=== PATIENT | female | born 1955 | race Caucasian/White ===

== ENCOUNTER 2018-03-13 10:26 | Outpatient (CLI) | payer OTHER | END 2018-03-13 10:27 | disposition home or self-care (01) | LOC: BICMAMMO 10:26 | PROVIDERS: ATTEND Internal Medicine Geriatric Medicine | DX: Z12.31 Encounter for screening mammogram for malignant neoplasm of breast (principal) | CPT/HCPCS: 77063; 77067 ==

== ENCOUNTER 2020-04-27 06:31 | Outpatient (CLI) | payer BC ==
[2020-04-27 11:48] LABS: Bilirubin Neg (Negative); Blood, Urine Negative (Negative); Clarity Clear (Clear); Glucose, Urine (Dipstick) Normal (Negative); Ketone, Urine Negative (Negative); Leukocyte Negative (Negative); Nitrite Negative (Negative); Protein, Urine (Dipstick) 15 mg/dl (Neg-Trace); Specific Gravity, Urine 1.015 (1.002-1.036); Urobilinogen Normal mg/dL (Less than 2)
[2020-04-27 11:55] LABS: #Basophils 0.1 10x3/uL (0.0-0.2); #Eosinphils 0.1 10x3/uL (0.0-0.5); #Monocytes 0.6 10x3/uL (0.0-1.1); #Neutrophils 4.6 10x3/uL (1.5-8.4); %Basophils 0.9 % (0.0-2.0); %Eosinophils 1.1 % (0.0-6.0); %Lymphocytes 32.6 % (18.0-47.0); %Monocytes 7.9 % (0.0-10.0); %Neutrophils 57.3 % (40.0-75.0); Hemoglobin 13.3 g/dL (12.0-16.0); Mean Corpuscular HGB CONC 34.2 G/DL (32.0-36.0); Mean Corpuscular Hemoglobin 33.8 PG (27.0-33.0); Mean Platelet Volume 9.9 fl (7.4-10.4); Platelet Count 303 10x3/uL (130-400); RBC Distribution Width 11.7 % (11.5-14.5); Red Blood Cell (RBC) Count 3.93 10x6/uL (3.90-5.20); White Blood Cell (WBC) Count 8.1 10x3/uL (4.5-11.0)
[2020-04-27 12:13] LABS: Anion Gap 16 mmol/L (10-20); BUN (Urea Nitrogen) 19 mg/dL (9.8-20.1); Calc. Creatinine Clearance 0 mL/min (70-130); Calcium 9.6 mg/dL (7.8-10.44); Carbon Dioxide 28 mmol/L (23-31); Chloride 99 mmol/L (98-107); Glucose 75 mg/dL (80-115); Potassium 3.9 mmol/L (3.5-5.1); Sodium 139 mmol/L (136-145)
[2020-04-27 12:24] LABS: RBC/HPF 0-3 HPF (0-3); Squamous Epithelial 0-3 HPF (0-3); WBC/HPF 0-3 HPF (0-3)
[2020-04-27 12:25] LABS: Bacteria/HPF Rare-Few HPF (None Seen); Mucous/LPF 1+ LPF (<2+)
[2020-04-27 12:27] LABS: Prothrombin Time 10.5 sec (9.5-12.1)
[2020-04-27 23:32] LABS: SARS-CoV-2 PCR by NAA Not Detected (NotDetected)
--- NOTE | 2020-04-28 07:23 | EKG ---
Test Reason : PREOP Blood Pressure : / mmHG Vent. Rate : 102 BPM Atrial Rate : 102 BPM P-R Int : 154 ms QRS Dur : 078 ms QT Int : 352 ms P-R-T Axes : 059 029 069 degrees QTc Int : 458 ms Sinus tachycardia Right atrial enlargement Anterior infarct , age undetermined Abnormal ECG Confirmed by DR. Ziyad CHAPMAN ([id number]) on 04/28/2020 7:23:21 AM Referred By: IERO Confirmed By:DR. Ziyad CHAPMAN
== END 2020-04-27 06:32 | disposition home or self-care (01) ==
LOC: LABBT 06:31
PROVIDERS: ATTEND Orthopaedic Surgery
DX: Z01.818 Encounter for other preprocedural examination (principal); Z20.822 Contact with and (suspected) exposure to COVID-19; M17.0 Bilateral primary osteoarthritis of knee
CPT/HCPCS: 80048; 81001; 85025; 85610; 87081; 87635; 93005; 93010; U0003; U0005

== ENCOUNTER 2020-05-09 05:21 | Day surgery (SDC) | payer BC ==
[2020-05-05 14:59] VITALS: BMI 35.7
[2020-05-09] MEDS ORDERED: Midazolam HCl 2 mg/2 ml Vial ONE (05:59)
[2020-05-09] MEDS ORDERED: Fentanyl 100 MCG/2 ML VIAL ONE ×2 (05:59→09:16)
[2020-05-09] MEDS ORDERED: Tranexamic Acid 1,000 MG/10 ML VIAL ONE ×2 (06:00→10:42)
[2020-05-09] MEDS ORDERED: Sodium Chloride 0.9% 100 ML ONE (06:00)
[2020-05-09] MEDS ORDERED: Clindamycin/D5W 600 mg/50 ml Premix Bag ONE (06:00)
[2020-05-09] MEDS ORDERED: Vancomycin 1.5 GRAM/300 ML BAG ONE (06:00)
[2020-05-09] MEDS ORDERED: Bupivacaine PF 0.5% 30 ML VIAL ONE (06:27)
[2020-05-09] MEDS ORDERED: Lidocaine 1% (PF) 30 ML VIAL ONE (06:33)
[2020-05-09] MEDS ORDERED: methylPREDNISolone Acetate 40 mg/ml Vial ONE (06:33)
[2020-05-09] MEDS ORDERED: Zolpidem Tartrate 5 MG TAB PO PRN ×2 (07:00→07:26)
[2020-05-09] MEDS ORDERED: Promethazine HCl 25 MG/ML VIAL IM PRN ×2 (07:00→07:26)
[2020-05-09] MEDS ORDERED: Ondansetron PF 4 MG/2 ML Vial IVP PRN ×2 (07:00→07:26)
[2020-05-09] MEDS ORDERED: Fentanyl 100 MCG/2 ML VIAL IV PRN (07:00)
[2020-05-09] MEDS ORDERED: HYDROcodone/Acetaminophen 10/325 mg Tablet PO PRN (07:00)
[2020-05-09] MEDS ORDERED: traMADol HCl 50 MG TAB PO PRN (07:00)
[2020-05-09] MEDS ORDERED: Ropivacaine HCl/PF 250 ML in Premix Bag 1 BAG NERVE BLCK SCH (07:00)
[2020-05-09] MEDS ORDERED: Acetaminophen 325 MG TAB PO PRN (07:26)
[2020-05-09] MEDS ORDERED: diphenhydrAMINE 25 MG CAP PO PRN (07:26)
[2020-05-09] MEDS ORDERED: Acetaminophen 500 MG TAB PO PRN (07:28)
[2020-05-09] MEDS ORDERED: clonazePAM 1 MG TAB PO PRN (07:28)
[2020-05-09] MEDS ORDERED: tiZANidine HCl 4 MG TAB PO PRN (07:28)
[2020-05-09] MEDS ORDERED: Tranexamic Acid 1,000 MG in Sodium Chloride 0.9% 100 ML IVPB SCH (07:30)
[2020-05-09] MEDS ORDERED: Cetirizine HCl 10 MG TAB PO SCH (09:00)
[2020-05-09] MEDS ORDERED: Gabapentin 300 MG CAP PO SCH (09:00)
[2020-05-09] MEDS ORDERED: Nortriptyline HCl 25 MG CAP PO SCH (09:00)
[2020-05-09] MEDS ORDERED: DULOXETINE HCL 40 MG PO SCH (09:00)
[2020-05-09] MEDS ORDERED: Simvastatin 40 MG TAB PO SCH (09:00)
[2020-05-09] MEDS ORDERED: carBAMazepine 200 MG TAB PO SCH (09:00)
[2020-05-09] MEDS ORDERED: Ondansetron HCl/PF 4 MG/2 ML Vial IVP PRN (09:36)
--- NOTE | 2020-05-09 10:22 | OP ---
DATE OF PROCEDURE: 05/09/2020 CYTOTECHNOLOGIST/HISTOTECHNOLOGIST: Trae Crespo PA-C. The orthodontic technician assistant surgeon was present throughout the procedure to include the approach, making our bone cuts and placement of our new implant and closure of the total knee incision. PREOPERATIVE DIAGNOSIS: Bilateral knee osteoarthrosis with left being worse than right. POSTOPERATIVE DIAGNOSIS: Bilateral knee osteoarthrosis with left being worse than right. PROCEDURES: 1. Left total knee replacement using [place] pinless navigation. 2. Right knee corticosteroid injection. ESTIMATED BLOOD LOSS: Approximately 100. COMPLICATIONS: None. TOURNIQUET TIME: ANESTHESIA: The patient did have a general anesthetic as well as a preoperative block. DISPOSITION: She went to recovery room in stable condition. IMPLANTS: A [employer] Triathlon total knee system. The femur was a size 3, cruciate retaining femur. We used a size 3 primary tibial base plate. We used a 3 x 13 mm CS X3 tibial bearing and asymmetric 29 x 9 X3 patella. INDICATIONS: Ms. Woo is a 64-year-old active female who has been dealing with severe knee arthritis for years and at this time, is causing her daily pain and inability to do her normal activities. At this time, she wished to have her left knee replaced and the right knee injected at the same time. PROCEDURE IN DETAIL: After all appropriate consent forms were explained and signed, she was taken to the operating room and at this time was given general anesthetic. Once the level of anesthesia was appropriate, the right knee was cleaned off with alcohol and 80 mg of Depo-Medrol and 1% lidocaine were injected without any complication. We then turned our attention to the left lower extremity. A well-padded tourniquet was placed on the left leg, and the leg was then prepped and draped in standard surgical fashion. The limb was exsanguinated and tourniquet taken up to 300 mmHg. Midline incision was made with a 10 blade down through the skin and subcutaneous tissue. Bovie electrocautery was used to coagulate any brisk venous bleeding. A new blade was used to make a medial parapatellar arthrotomy. Small subperiosteal release was performed medially and excess fat pad was removed. The knee was flexed up to gain access to the femur. The femur was navigated and distal femoral resection was made. Epicondylar access was used to align our sizing jig and this was pinned in place. We sized our femur to be a 3, cruciate retaining femur. 4:1 cutting block was applied and pinned. Anterior and posterior chamfer cuts were then made. We navigated out our proximal tibia and made our proximal tibial resection. Spreaders were used to remove any posterior osteophytes off the back of the femur as well as remaining meniscal tissue. A long alignment laura was then used to achieve correct rotation of our tibial baseplate and a size 3 was chosen. This was pinned in place. We trialed the polyethylene and a 3 x 13 mm CS X3 tibial bearing polyethylene gave us full extension and good stability throughout range of motion. Two towel clips and a saw were used to cut our patella. Three lug nuts were drilled and asymmetric 29 x 9 X3 patella was trialed which sat nicely in the trochlear groove. We then drilled our femur and punched our tibia. All components were removed. The knee was thoroughly irrigated and dried. Cement was mixed into the cement gun on the back table. Components were then placed. The knee was held out in full extension until the cement had dried. All excess bone cement was removed. Multiple #2 Vicryl stitches as well as a Quill were used to close our extensor mechanism. 0 Quill followed by a running Monoderm was then used to close the skin. Surgicel glue was then used on the skin. Once this had dried, soft tissue dressing was applied to the limb, tourniquet was let down, and the toes pinked up nicely. The patient was then awakened and taken to the recovery room in stable condition. All counts were correct at the end of the case. The patient did receive preoperative IV antibiotics. The patient was injected with Marcaine for postoperative pain relief. Job ID: [id number]
[2020-05-09] MEDS ORDERED: PHENYLEPHRINE-NS 100 MCG/ML 10 ML SYRINGE ONE (10:34)
[2020-05-09] MEDS ORDERED: Ketorolac Tromethamine 30 MG/ML VIAL ONE (10:34)
[2020-05-09] MEDS ORDERED: Lidocaine 1% PF 5 ML VIAL ONE (10:34)
[2020-05-09] MEDS ORDERED: Ondansetron PF 4 MG/2 ML Vial ONE (10:34)
[2020-05-09] MEDS ORDERED: ePHEDrine 50 MG/ML VIAL ONE (10:34)
[2020-05-09] MEDS ORDERED: PROPOFOL 200 MG/20 ML VIAL ONE (10:34)
[2020-05-09] MEDS ORDERED: Bupivacaine 0.5% 10 ML VIAL ONE (11:10)
[2020-05-09] MEDS ORDERED: Ropivacaine 2% HCl/PF (20 MG/10 ML VIAL) ONE (11:23)
[2020-05-09] MEDS ORDERED: Bupivacaine HCl 0.5%/Epinephrine 1:200,000/PF 30 ml Vial ONE (11:23)
[2020-05-09] MEDS: Aspirin 81 mg Enteric Coated Tablet PO SCH ×2 (12:17→20:16)
[2020-05-09] MEDS: Sodium Chloride 0.9% 1,000 ML IV SCH ×2 (12:20→14:51)
[2020-05-09] MEDS: Ferrous Gluconate 324 MG TAB PO SCH ×2 (13:16→20:16)
[2020-05-09] MEDS: Multivitamin W/ Minerals 1 TAB PO SCH (13:17)
[2020-05-09] MEDS: Loratadine 10 MG TAB PO SCH (13:17)
[2020-05-09] MEDS: Senokot S 8.6-50 MG TAB PO SCH ×2 (13:17→20:15)
[2020-05-09] MEDS: Ketorolac Tromethamine 30 MG/ML VIAL IVP SCH ×3 (13:19→23:13)
[2020-05-09] MEDS: Clindamycin/D5W 900 MG in Premix Bag 1 BAG IVPB SCH ×2 (13:23→18:39)
[2020-05-09] MEDS ORDERED: Ketorolac Tromethamine 30 MG/ML VIAL IVP SCH (14:00)
[2020-05-09] MEDS ORDERED: Vancomycin 1.5 GRAM/300 ML BAG 1.5 GM in Premix Bag 1 BAG IVPB SCH (18:00)
[2020-05-09] MEDS: Gabapentin 300 MG CAP PO SCH (20:16)
[2020-05-09] MEDS: carBAMazepine 200 MG TAB PO SCH (20:16)
[2020-05-09] MEDS: Simvastatin 40 MG TAB PO SCH (21:18)
[2020-05-09] MEDS: Nortriptyline HCl 25 MG CAP PO SCH (21:33)
[2020-05-09] MEDS: HYDROcodone/Acetaminophen 10/325 mg Tablet PO PRN (23:18)
[2020-05-10] MEDS: Sodium Chloride 0.9% 1,000 ML IV SCH ×2 (04:32→14:54)
[2020-05-10] MEDS: Ketorolac Tromethamine 30 MG/ML VIAL IVP SCH ×4 (05:28→23:26)
[2020-05-10 05:49] LABS: Mean Corpuscular HGB CONC 33.7 g/dL (32.0-36.0); Mean Corpuscular Hemoglobin 33.5 pg (27.0-31.0); Mean Corpuscular Volume 99.4 fL (78.0-98.0); Mean Platelet Volume 7.2 fL (7.4-10.4); Platelet Count 227 thou/uL (130-400); RBC Distribution Width 10.9 % (11.5-14.5); Red Blood Cell (RBC) Count 3.59 mill/uL (4.20-5.40); White Blood Cell (WBC) Count 10.1 thou/uL (4.8-10.8)
[2020-05-10] MEDS: HYDROcodone/Acetaminophen 10/325 mg Tablet PO PRN ×4 (08:08→23:27)
[2020-05-10] MEDS: Senokot S 8.6-50 MG TAB PO SCH ×2 (08:12→20:24)
[2020-05-10] MEDS: Multivitamin W/ Minerals 1 TAB PO SCH (08:13)
[2020-05-10] MEDS: Aspirin 81 mg Enteric Coated Tablet PO SCH ×2 (08:13→20:24)
[2020-05-10] MEDS: Loratadine 10 MG TAB PO SCH (08:13)
[2020-05-10] MEDS: Ferrous Gluconate 324 MG TAB PO SCH ×2 (08:13→20:26)
[2020-05-10] MEDS: traMADol HCl 50 MG TAB PO PRN (10:46)
--- NOTE | 2020-05-10 12:17 | PRG ---
DATE OF SERVICE: 05/10/2020 SUBJECTIVE: Alexa is a 64-year-old female postop day 1 from left total knee arthroplasty. She is doing relatively well. She had some pain last night, but oral medications have taken care of this. She has not been up to walking. OBJECTIVE: VITAL SIGNS: Temperature 98.8, pulse 101, respiratory rate 18, and blood pressure 139/87. GENERAL: She is alert and oriented to person, place, time, and situation. Responsive and appropriate with examiner, conversive. SKIN: Incision is clean. No strikethrough. No erythema. NEUROLOGIC: She is neurovascularly intact in left lower extremity. LABORATORY DATA: Hemoglobin and hematocrit 12.0 and 35.7. IMPRESSION: 64-year-old female postop day 1 left total knee arthroplasty, doing well. PLAN: Continue to observe for hemorrhage. Continue to observe H and H and for pain control. Consider discharge home tomorrow if independent. Job ID: [id number]
[2020-05-10] MEDS: Simvastatin 40 MG TAB PO SCH (20:24)
[2020-05-10] MEDS: Nortriptyline HCl 25 MG CAP PO SCH (20:24)
[2020-05-10] MEDS: Gabapentin 300 MG CAP PO SCH (20:24)
[2020-05-10] MEDS: carBAMazepine 200 MG TAB PO SCH (20:24)
[2020-05-11] MEDS: Sodium Chloride 0.9% 1,000 ML IV SCH ×3 (00:18→17:09)
[2020-05-11 05:28] LABS: Hemoglobin 11.8 g/dL (12.0-16.0); Mean Corpuscular HGB CONC 34.7 g/dL (32.0-36.0); Mean Corpuscular Hemoglobin 34.7 pg (27.0-31.0); Mean Corpuscular Volume 99.8 fL (78.0-98.0); Mean Platelet Volume 7.5 fL (7.4-10.4); Platelet Count 210 thou/uL (130-400); Red Blood Cell (RBC) Count 3.42 mill/uL (4.20-5.40); White Blood Cell (WBC) Count 9.5 thou/uL (4.8-10.8)
[2020-05-11] MEDS: Ketorolac Tromethamine 30 MG/ML VIAL IVP SCH ×2 (06:13→11:18)
[2020-05-11] MEDS: HYDROcodone/Acetaminophen 10/325 mg Tablet PO PRN ×4 (06:24→23:17)
[2020-05-11] MEDS: Multivitamin W/ Minerals 1 TAB PO SCH (08:09)
[2020-05-11] MEDS: Loratadine 10 MG TAB PO SCH (08:09)
[2020-05-11] MEDS: Ferrous Gluconate 324 MG TAB PO SCH ×2 (08:09→19:54)
[2020-05-11] MEDS: Senokot S 8.6-50 MG TAB PO SCH ×2 (08:09→19:55)
[2020-05-11] MEDS: Aspirin 81 mg Enteric Coated Tablet PO SCH ×2 (08:09→19:54)
[2020-05-11] MEDS ORDERED: Ketorolac Tromethamine 30 MG/ML VIAL IVP PRN (12:29)
[2020-05-11] MEDS: traMADol HCl 50 MG TAB PO PRN (18:26)
[2020-05-11] MEDS: Nortriptyline HCl 25 MG CAP PO SCH (19:54)
[2020-05-11] MEDS: Simvastatin 40 MG TAB PO SCH (19:54)
[2020-05-11] MEDS: Gabapentin 300 MG CAP PO SCH (19:55)
[2020-05-11] MEDS: carBAMazepine 200 MG TAB PO SCH (19:56)
[2020-05-12 05:47] LABS: Hemoglobin 11.1 g/dL (12.0-16.0); Mean Corpuscular HGB CONC 34.3 g/dL (32.0-36.0); Mean Corpuscular Hemoglobin 34.3 pg (27.0-31.0); Mean Platelet Volume 7.1 fL (7.4-10.4); Platelet Count 227 thou/uL (130-400); RBC Distribution Width 10.8 % (11.5-14.5); Red Blood Cell (RBC) Count 3.24 mill/uL (4.20-5.40); White Blood Cell (WBC) Count 9.9 thou/uL (4.8-10.8)
[2020-05-12] MEDS: Senokot S 8.6-50 MG TAB PO SCH (10:15)
[2020-05-12] MEDS: Multivitamin W/ Minerals 1 TAB PO SCH (10:15)
[2020-05-12] MEDS: Ferrous Gluconate 324 MG TAB PO SCH (10:15)
[2020-05-12] MEDS: Loratadine 10 MG TAB PO SCH (10:15)
[2020-05-12] MEDS: Aspirin 81 mg Enteric Coated Tablet PO SCH (10:15)
[2020-05-12] MEDS: HYDROcodone/Acetaminophen 10/325 mg Tablet PO PRN (10:30)
[2020-05-12 11:27] VITALS: BP 138/96; TEMP 98.5
== END 2020-05-12 12:15 | disposition home or self-care (01) ==
LOC: SDC 05:21 → SURG A 07:26 → SDC 05-12 12:15
PROVIDERS: ATTEND Orthopaedic Surgery
PROC: 3E0U33Z Introduction of Anti-inflammatory into Joints, Percutaneous Approach (ICD-10-PCS; principal; 2020-05-09)
PROC: 0SRD0J9 Replacement of Left Knee Joint with Synthetic Substitute, Cemented, Open Approach (ICD-10-PCS; principal; 2020-05-09)
PROC: 8E0YXBZ Computer Assisted Procedure of Lower Extremity (ICD-10-PCS; principal; 2020-05-09)
DX: M17.0 Bilateral primary osteoarthritis of knee (principal); I10 Essential (primary) hypertension; J45.909 Unspecified asthma, uncomplicated; F32.9 Major depressive disorder, single episode, unspecified; M81.0 Age-related osteoporosis without current pathological fracture; G50.0 Trigeminal neuralgia; Z87.891 Personal history of nicotine dependence; Z79.899 Other long term (current) drug therapy; Z88.1 Allergy status to other antibiotic agents; Z88.8 Allergy status to other drugs, medicaments and biological substances
CPT/HCPCS: 36415; 85027; C1713; C1776; J1885; J2001; J2250; J2405; J2704; J2795; J2920; J3010; J3370; J3490; S0020

== ENCOUNTER 2020-07-28 15:01 | Outpatient (CLI) | payer BC | END 2020-07-28 15:02 | disposition home or self-care (01) | LOC: BICULT 15:01 | PROVIDERS: ATTEND Orthopaedic Surgery | DX: R22.42 Localized swelling, mass and lump, left lower limb (principal) ==

== ENCOUNTER 2020-09-10 12:11 | Inpatient (IN) | payer BC ==
[~2020-09-10 12:11] MED LIST: Iopamidol-370 76% 500 ML 1 ML ONE
[2020-09-10 12:27] LABS: #Lymphocytes 1.7 thou/uL (1.20-3.40); #Monocytes 0.9 thou/uL (0.11-0.59); #Neutrophils 9.4 thou/uL (1.40-6.50); %Basophils 0.4 % (0.0-1.0); %Eosinophils 0.3 % (0.0-10.0); %Lymphocytes 14.1 % (21.0-51.0); %Monocytes 7.2 % (0.0-10.0); %Neutrophils 77.9 % (42.0-75.0); Mean Corpuscular HGB CONC 34.9 g/dL (32.0-36.0); Mean Corpuscular Hemoglobin 34.1 pg (27.0-31.0); Mean Corpuscular Volume 97.7 fL (78.0-98.0); Mean Platelet Volume 7.1 fL (7.4-10.4); Platelet Count 308 thou/uL (130-400); RBC Distribution Width 11.7 % (11.5-14.5); White Blood Cell (WBC) Count 12.1 thou/uL (4.8-10.8)
[2020-09-10 12:37] LABS: INR-International Normal Ratio 0.9; Prothrombin Time 12.6 sec (12.0-14.7)
[2020-09-10 12:51] LABS: ALT (SGPT) 46 U/L (8-55); AST (SGOT) 40 U/L (5-34); Albumin 4.3 g/dL (3.4-4.8); Alkaline Phosphatase 93 U/L (40-110); Anion Gap 13 mmol/L (10-20); BUN (Urea Nitrogen) 12 mg/dL (9.8-20.1); CK (CPK) 480 U/L (29-168); Calc. Creatinine Clearance 0 mL/min (70-130); Calcium 10.1 mg/dL (7.8-10.44); Carbon Dioxide 27 mmol/L (23-31); Chloride 100 mmol/L (98-107); Globulin 3.4 g/dL (2.4-3.5); Glucose 116 mg/dL (80-115); Protein, Total 7.7 g/dL (5.8-8.1); Sodium 136 mmol/L (136-145)
[2020-09-10] MEDS ORDERED: Aspirin 300 MG Suppository ONE (14:03)
[2020-09-10] MEDS ORDERED: Enoxaparin Sodium 40 MG/0.4 ML SYRINGE SC SCH (14:30)
[2020-09-10 15:27] LABS: INR-International Normal Ratio 0.9; PTT 26.6 sec (22.9-36.1); Prothrombin Time 12.7 sec (12.0-14.7)
[2020-09-10 15:55] LABS: SARS-CoV-2 NAA Rapid Test Not Detected (NotDetected)
[2020-09-10 16:38] VITALS: BMI 37.3
[2020-09-10] MEDS: Atorvastatin Calcium 40 MG TAB PO SCH (19:59)
[2020-09-11 04:08] LABS: Cardiac Risk 5.6 (Less than 4.5)
[2020-09-11] MEDS: Aspirin 81 mg Enteric Coated Tablet PO SCH (08:15)
[2020-09-11] MEDS: Enoxaparin Sodium 40 MG/0.4 ML SYRINGE SC SCH (08:24)
[2020-09-11] MEDS: Atorvastatin Calcium 40 MG TAB PO SCH (20:40)
[2020-09-12] MEDS: Clopidogrel Bisulfate 75 MG TAB PO SCH (08:24)
[2020-09-12] MEDS: Aspirin 81 mg Enteric Coated Tablet PO SCH (08:24)
[2020-09-12] MEDS: Enoxaparin Sodium 40 MG/0.4 ML SYRINGE SC SCH (08:24)
[2020-09-12] MEDS: Atorvastatin Calcium 40 MG TAB PO SCH (21:15)
[2020-09-13 03:55] LABS: #Basophils 0.1 thou/uL (0.0-0.2); #Eosinphils 0.1 thou/uL (0.0-0.7); #Lymphocytes 3.3 thou/uL (1.20-3.40); #Monocytes 0.7 thou/uL (0.11-0.59); %Basophils 1.6 % (0.0-1.0); %Eosinophils 1.5 % (0.0-10.0); %Lymphocytes 39.8 % (21.0-51.0); %Monocytes 8.1 % (0.0-10.0); %Neutrophils 49.1 % (42.0-75.0); Hemoglobin 13.4 g/dL (12.0-16.0); Mean Corpuscular HGB CONC 34.6 g/dL (32.0-36.0); Mean Corpuscular Hemoglobin 33.7 pg (27.0-31.0); Mean Corpuscular Volume 97.3 fL (78.0-98.0); Mean Platelet Volume 7.1 fL (7.4-10.4); Platelet Count 254 thou/uL (130-400); Red Blood Cell (RBC) Count 3.97 mill/uL (4.20-5.40); White Blood Cell (WBC) Count 8.2 thou/uL (4.8-10.8)
[2020-09-13 03:59] LABS: Anion Gap 15 mmol/L (10-20); BUN (Urea Nitrogen) 13 mg/dL (9.8-20.1); Calc. Creatinine Clearance 127 mL/min (70-130); Calcium 9.5 mg/dL (7.8-10.44); Carbon Dioxide 26 mmol/L (23-31); Chloride 101 mmol/L (98-107); Glucose 105 mg/dL (80-115); Potassium 3.8 mmol/L (3.5-5.1); Sodium 138 mmol/L (136-145)
[2020-09-13] MEDS: Aspirin 81 mg Enteric Coated Tablet PO SCH (08:54)
[2020-09-13] MEDS: Clopidogrel Bisulfate 75 MG TAB PO SCH (08:55)
[2020-09-13] MEDS: Enoxaparin Sodium 40 MG/0.4 ML SYRINGE SC SCH (08:55)
[2020-09-13] MEDS: Atorvastatin Calcium 40 MG TAB PO SCH (22:07)
[2020-09-14] MEDS: Enoxaparin Sodium 40 MG/0.4 ML SYRINGE SC SCH (08:08)
[2020-09-14] MEDS: Aspirin 81 mg Enteric Coated Tablet PO SCH (08:08)
[2020-09-14] MEDS: Clopidogrel Bisulfate 75 MG TAB PO SCH (08:08)
[2020-09-14 12:16] VITALS: BP 131/71; TEMP 98.6
== END 2020-09-14 15:50 | DRG 65 ==
LOC: ERS 12:11 → IMCU/EMU 14:04 → 2SE 09-13 17:01
PROVIDERS: ADMIT Internal Medicine; ATTEND Internal Medicine
DX: I63.312 Cerebral infarction due to thrombosis of left middle cerebral artery (principal); G81.91 Hemiplegia, unspecified affecting right dominant side; Z20.822 Contact with and (suspected) exposure to COVID-19; R29.731 NIHSS score 31; R29.810 Facial weakness; R47.01 Aphasia; G93.89 Other specified disorders of brain; I65.03 Occlusion and stenosis of bilateral vertebral arteries; E78.5 Hyperlipidemia, unspecified; E78.00 Pure hypercholesterolemia, unspecified; I65.22 Occlusion and stenosis of left carotid artery; Z96.652 Presence of left artificial knee joint; F17.210 Nicotine dependence, cigarettes, uncomplicated; Z88.5 Allergy status to narcotic agent; Z88.1 Allergy status to other antibiotic agents; Z88.8 Allergy status to other drugs, medicaments and biological substances; Z79.82 Long term (current) use of aspirin; Z79.899 Other long term (current) drug therapy
CPT/HCPCS: 0240U; 36415; 36416; 70450; 70496; 70498; 70551; 71045; 80048; 80053; 80061; 82550; 84484; 85025; 85610; 85730; 93005; 93306; 94760; 95712; 95819; 95957; J1650; Q9967

== ENCOUNTER 2020-12-01 12:00 | Inpatient (IN) | payer OTHER ==
[2020-12-02 09:26] VITALS: BMI 34.3
[2020-12-06] MEDS ORDERED: Protamine Sulfate 50 MG/5 ML VIAL ONE (09:06)
[2020-12-06] MEDS ORDERED: Heparin 5,000 UNITS/ML VIAL ONE ×2 (09:06→09:41)
[2020-12-06] MEDS ORDERED: Dexamethasone 4 mg/ml Vial ONE (09:06)
[2020-12-06] MEDS ORDERED: EPINEPHrine 1 MG/ML AMP ONE (09:06)
[2020-12-06] MEDS ORDERED: Bupivacaine PF 0.5% 30 ML VIAL ONE (09:06)
[2020-12-06] MEDS ORDERED: Fentanyl 100 MCG/2 ML VIAL ONE ×2 (09:18→12:41)
[2020-12-06] MEDS ORDERED: PHENYLEPHRINE-NS 100 MCG/ML 10 ML SYRINGE ONE ×3 (09:19→13:36)
[2020-12-06] MEDS ORDERED: Phenylephrine 10 MG/ML VIAL ONE (09:19)
[2020-12-06] MEDS ORDERED: ePHEDrine 50 MG/ML VIAL ONE (10:15)
[2020-12-06] MEDS ORDERED: Lidocaine 1% PF 5 ML VIAL ONE (10:15)
[2020-12-06] MEDS ORDERED: PROPOFOL 200 MG/20 ML VIAL ONE (10:15)
[2020-12-06] MEDS ORDERED: Calcium Chloride 1 GM/10 ML Abboject SYRINGE ONE (10:15)
[2020-12-06] MEDS ORDERED: Ondansetron PF 4 MG/2 ML Vial ONE (10:15)
[2020-12-06] MEDS ORDERED: Glycopyrrolate 0.2 MG/ML 5 ML SYRINGE ONE (10:15)
[2020-12-06] MEDS ORDERED: SUGAMMADEX SODIUM 200 MG/2 ML VIAL ONE (11:40)
[2020-12-06] MEDS ORDERED: traMADol HCl 50 MG TAB PO PRN (12:06)
[2020-12-06] MEDS ORDERED: Nitroglycerin 50 MG/250 ML BOT 250 ML IVPB PRN (12:06)
[2020-12-06] MEDS ORDERED: Fentanyl 100 MCG/2 ML VIAL SLOW IVP PRN (12:06)
[2020-12-06] MEDS ORDERED: Acetaminophen 325 MG TAB PO PRN (12:06)
[2020-12-06] MEDS ORDERED: Ondansetron PF 4 MG/2 ML Vial IVP PRN (12:06)
[2020-12-06] MEDS ORDERED: hydrALAZINE 20 MG/ML VIAL SLOW IVP PRN (12:06)
[2020-12-06] MEDS ORDERED: Phenylephrine 40 MG in Sodium Chloride 0.9% 250 ML 250 ML IVPB PRN (12:06)
[2020-12-06] MEDS: Sodium Chloride 0.9% 1,000 ML IV SCH ×2 (12:30→22:04)
[2020-12-06] MEDS ORDERED: ePHEDrine Sulfate 50 MG/10 ML VIAL ONE (13:36)
[2020-12-06] MEDS ORDERED: DOPamine 400 MG/D5W 250 ML 250 ML ONE (15:57)
[2020-12-06] MEDS ORDERED: DOPamine 400 MG/D5W 250 ML 250 ML IVPB SCH (16:00)
[2020-12-06] MEDS: CEFAZOLIN 2 GM in Premix Bag 1 BAG IVPB SCH (17:00)
[2020-12-06 17:21] VITALS: BP 102/56
[2020-12-06] MEDS ORDERED: Donepezil HCl 5 MG TAB PO SCH (21:00)
[2020-12-06] MEDS ORDERED: carBAMazepine 200 MG TAB PO SCH (21:00)
[2020-12-06] MEDS ORDERED: Atorvastatin Calcium 40 MG TAB PO SCH (21:00)
[2020-12-06] MEDS ORDERED: Sterile Water 0 ML ONE (23:38)
[2020-12-06] MEDS ORDERED: Sodium Chloride 0.9% 10 ML ONE (23:38)
[2020-12-07] MEDS: CEFAZOLIN 2 GM in Premix Bag 1 BAG IVPB SCH ×2 (01:00→08:53)
[2020-12-07] MEDS: Sodium Chloride 0.9% 1,000 ML IV SCH (07:38)
[2020-12-07] MEDS ORDERED: Clopidogrel Bisulfate 75 MG TAB ONE (08:41)
[2020-12-07] MEDS ORDERED: Sodium Chloride 0.9% 0 ML ONE (08:48)
[2020-12-07] MEDS ORDERED: CEFAZOLIN 1 GM VIAL ONE (08:48)
[2020-12-07] MEDS ORDERED: Aspirin 81 mg Enteric Coated Tablet PO SCH (09:00)
[2020-12-07] MEDS ORDERED: Clopidogrel Bisulfate 75 MG TAB PO SCH (09:00)
[2020-12-07] MEDS ORDERED: Loratadine 10 MG TAB PO SCH (09:00)
[2020-12-07 09:36] VITALS: TEMP 97.8
== END 2020-12-07 10:45 | disposition home or self-care (01) | DRG 39 ==
LOC: SURG A 12-06 08:10
PROVIDERS: ADMIT Thoracic Surgery (Cardiothoracic Vascular Surgery); ATTEND Thoracic Surgery (Cardiothoracic Vascular Surgery)
PROC: 03CK0ZZ Extirpation of Matter from Right Internal Carotid Artery, Open Approach (ICD-10-PCS; principal; 2020-12-06)
PROC: 03CH0ZZ Extirpation of Matter from Right Common Carotid Artery, Open Approach (ICD-10-PCS; 2020-12-06)
PROC: 03CM0ZZ Extirpation of Matter from Right External Carotid Artery, Open Approach (ICD-10-PCS; 2020-12-06)
PROC: 03UH0KZ Supplement Right Common Carotid Artery with Nonautologous Tissue Substitute, Open Approach (ICD-10-PCS; 2020-12-06)
PROC: 03UK0KZ Supplement Right Internal Carotid Artery with Nonautologous Tissue Substitute, Open Approach (ICD-10-PCS; 2020-12-06)
PROC: 03UM0KZ Supplement Right External Carotid Artery with Nonautologous Tissue Substitute, Open Approach (ICD-10-PCS; 2020-12-06)
DX: I65.21 Occlusion and stenosis of right carotid artery (principal); Z20.822 Contact with and (suspected) exposure to COVID-19; I10 Essential (primary) hypertension; Z79.02 Long term (current) use of antithrombotics/antiplatelets; Z79.899 Other long term (current) drug therapy; Z86.73 Personal history of transient ischemic attack (TIA), and cerebral infarction without residual deficits; Z90.89 Acquired absence of other organs; Z82.49 Family history of ischemic heart disease and other diseases of the circulatory system; Z83.3 Family history of diabetes mellitus; Z88.1 Allergy status to other antibiotic agents; Z88.8 Allergy status to other drugs, medicaments and biological substances
CPT/HCPCS: 94640; J0171; J0690; J1100; J1265; J1642; J1644; J2370; J2405; J2704; J2720; J3010; J3490; J7050; J7620; S0020

== ENCOUNTER 2020-12-11 12:36 | Inpatient (IN) | payer BC, SELFPAY ==
[2020-12-11] MEDS ORDERED: Ondansetron PF 4 MG/2 ML Vial IVP PRN (15:40)
[2020-12-11] MEDS ORDERED: Ondansetron ODT 4 MG TAB PO PRN (15:40)
[2020-12-11] MEDS ORDERED: hydrALAZINE 20 MG/ML VIAL SLOW IVP PRN (15:40)
[2020-12-11] MEDS ORDERED: Acetaminophen 650 MG Suppository PR PRN (15:40)
[2020-12-11] MEDS ORDERED: Acetaminophen 325 MG TAB PO PRN (15:40)
[2020-12-11 16:05] LABS: #Eosinphils 0.1 thou/uL (0.0-0.7); #Lymphocytes 2.3 thou/uL (1.20-3.40); #Monocytes 0.5 thou/uL (0.11-0.59); #Neutrophils 3.4 thou/uL (1.40-6.50); %Basophils 0.7 % (0.0-1.0); %Eosinophils 1.6 % (0.0-10.0); %Lymphocytes 36.5 % (21.0-51.0); %Neutrophils 53.2 % (42.0-75.0); Hemoglobin 14.2 g/dL (12.0-16.0); Mean Corpuscular Volume 97.1 fL (78.0-98.0); Mean Platelet Volume 7.9 fL (7.4-10.4); Platelet Count 219 thou/uL (130-400); RBC Distribution Width 11.3 % (11.5-14.5); Red Blood Cell (RBC) Count 4.18 mill/uL (4.20-5.40); White Blood Cell (WBC) Count 6.3 thou/uL (4.8-10.8)
[2020-12-11 16:36] LABS: Anion Gap 22 mmol/L (10-20); BUN (Urea Nitrogen) 14 mg/dL (9.8-20.1); Calc. Creatinine Clearance 0 mL/min (70-130); Calcium 9.7 mg/dL (7.8-10.44); Carbon Dioxide 21 mmol/L (23-31); Chloride 100 mmol/L (98-107); Glucose 94 mg/dL (80-115); Potassium 3.8 mmol/L (3.5-5.1); Sodium 139 mmol/L (136-145)
[2020-12-11 16:41] LABS: Troponin I 0.011 ng/mL (< 0.028)
[2020-12-11] MEDS ORDERED: tiZANidine HCl 4 MG TAB PO PRN (16:56)
[2020-12-11 17:09] VITALS: BMI 32.8
[2020-12-11 17:22] LABS: Lactic Acid 1.1 mmol/L (0.5-2.2)
[2020-12-11] MEDS ORDERED: Lorazepam 2 MG/ML VIAL ONE ×2 (20:21→20:31)
[2020-12-11 20:34] LABS: #Basophils 0.1 thou/uL (0.0-0.2); #Eosinphils 0.2 thou/uL (0.0-0.7); #Monocytes 0.8 thou/uL (0.11-0.59); #Neutrophils 3.9 thou/uL (1.40-6.50); %Eosinophils 1.9 % (0.0-10.0); %Lymphocytes 38.3 % (21.0-51.0); %Monocytes 10.1 % (0.0-10.0); %Neutrophils 48.7 % (42.0-75.0); Hemoglobin 13.3 g/dL (12.0-16.0); Mean Corpuscular HGB CONC 35.7 g/dL (32.0-36.0); Mean Corpuscular Hemoglobin 34.7 pg (27.0-31.0); Mean Corpuscular Volume 97.2 fL (78.0-98.0); Mean Platelet Volume 7.9 fL (7.4-10.4); Platelet Count 256 thou/uL (130-400); RBC Distribution Width 11.2 % (11.5-14.5); Red Blood Cell (RBC) Count 3.83 mill/uL (4.20-5.40); White Blood Cell (WBC) Count 7.9 thou/uL (4.8-10.8)
[2020-12-11 20:47] LABS: PTT 27.6 sec (22.9-36.1); Prothrombin Time 12.8 sec (12.0-14.7)
[2020-12-11 20:51] LABS: ALT (SGPT) 20 U/L (8-55); AST (SGOT) 25 U/L (5-34); Alkaline Phosphatase 81 U/L (40-110); Anion Gap 16 mmol/L (10-20); BUN (Urea Nitrogen) 12 mg/dL (9.8-20.1); Bilirubin, Total 0.6 mg/dL (0.2-1.2); CK (CPK) 85 U/L (29-168); Calc. Creatinine Clearance 125 mL/min (70-130); Calcium 9.6 mg/dL (7.8-10.44); Carbon Dioxide 28 mmol/L (23-31); Chloride 98 mmol/L (98-107); Globulin 2.7 g/dL (2.4-3.5); Glucose 89 mg/dL (80-115); Potassium 3.3 mmol/L (3.5-5.1); Protein, Total 6.7 g/dL (5.8-8.1); Sodium 139 mmol/L (136-145)
[2020-12-11] MEDS ORDERED: Lorazepam 2 MG/ML VIAL SLOW IVP PRN (20:52)
[2020-12-11] MEDS ORDERED: Atorvastatin Calcium 40 MG TAB PO SCH (21:00)
[2020-12-11] MEDS ORDERED: Gabapentin 300 MG CAP PO SCH (21:00)
[2020-12-11] MEDS ORDERED: Electrolyte Replacement Protocol 1 EACH FS PRN (21:15)
[2020-12-11] MEDS: levETIRAcetam in NS 1,000 MG in Premix Bag 1 BAG IVPB SCH (22:47)
[2020-12-11] MEDS: Dextrose 5% in Water 1,000 ML IV SCH (22:48)
[2020-12-11] MEDS: carBAMazepine 200 MG TAB PO SCH (22:58)
[2020-12-11] MEDS: Donepezil HCl 5 MG TAB PO SCH (22:58)
[2020-12-11] MEDS: Atorvastatin Calcium 40 MG TAB PO SCH (22:58)
[2020-12-11] MEDS: traZODone HCl 50 MG TAB PO SCH (22:59)
[2020-12-11 23:44] LABS: SARS-CoV-2 PCR by NAA Not Detected (NotDetected)
[2020-12-12 04:51] LABS: Bilirubin Negative (Negative); Blood, Urine Negative (Negative); Clarity Clear (Clear); Glucose, Urine (Dipstick) Normal (Negative); Ketone, Urine Negative (Negative); Leukocyte Negative Leu/uL (Negative); Nitrite Negative (Negative); Protein, Urine (Dipstick) 20 mg/dL (Neg-Trace); RBC/HPF 0-3 HPF (0-3); Specific Gravity, Urine 1.031 (1.002-1.036); Urobilinogen Normal mg/dL (Less than 2); pH, Urine 7.5 (5.0-9.0)
[2020-12-12 04:52] LABS: Bacteria/HPF 1+ HPF (None Seen)
[2020-12-12 06:12] LABS: #Basophils 0.1 thou/uL (0.0-0.2); #Eosinphils 0.2 thou/uL (0.0-0.7); #Lymphocytes 2.3 thou/uL (1.20-3.40); #Monocytes 0.7 thou/uL (0.11-0.59); %Basophils 1.2 % (0.0-1.0); %Eosinophils 2.8 % (0.0-10.0); %Lymphocytes 37.2 % (21.0-51.0); %Monocytes 10.8 % (0.0-10.0); Hemoglobin 12.9 g/dL (12.0-16.0); Mean Corpuscular HGB CONC 35.7 g/dL (32.0-36.0); Mean Corpuscular Hemoglobin 34.8 pg (27.0-31.0); Mean Corpuscular Volume 97.4 fL (78.0-98.0); Mean Platelet Volume 7.8 fL (7.4-10.4); Platelet Count 228 thou/uL (130-400); RBC Distribution Width 11.2 % (11.5-14.5); White Blood Cell (WBC) Count 6.2 thou/uL (4.8-10.8)
[2020-12-12] MEDS ORDERED: Potassium Chloride 20 MEQ TAB PO SCH (06:30)
[2020-12-12 06:34] LABS: Anion Gap 13 mmol/L (10-20); BUN (Urea Nitrogen) 10 mg/dL (9.8-20.1); Calc. Creatinine Clearance 121 mL/min (70-130); Calcium 9.4 mg/dL (7.8-10.44); Carbon Dioxide 31 mmol/L (23-31); Cardiac Risk 4.1 (Less than 4.5); Chloride 98 mmol/L (98-107); Cholesterol 190 mg/dl (< 200 Desired); Glucose 110 mg/dL (80-115); HDL Cholesterol 46 mg/dL (>60 Neg Risk); Sodium 139 mmol/L (136-145)
[2020-12-12 06:40] LABS: Potassium 2.9 mmol/L (3.5-5.1)
[2020-12-12 06:44] LABS: LDL Cholesterol, Calculated 102 mg/dL
[2020-12-12 06:45] LABS: Triglycerides 238 mg/dL (Less than 150)
[2020-12-12] MEDS: Potassium Chloride 40 MEQ in Sodium Chloride 0.9% 250 ML 250 ML IVPB SCH ×2 (08:55→15:47)
[2020-12-12] MEDS ORDERED: Clopidogrel Bisulfate 75 MG TAB PO SCH (09:00)
[2020-12-12] MEDS ORDERED: Aspirin 81 mg Enteric Coated Tablet PO SCH (09:00)
[2020-12-12] MEDS: levETIRAcetam in NS 1,000 MG in Premix Bag 1 BAG IVPB SCH (10:59)
[2020-12-12] MEDS ORDERED: levETIRAcetam in NS 1,000 MG in Premix Bag 1 BAG IVPB SCH (14:00)
[2020-12-12] MEDS ORDERED: levETIRAcetam in NS 500 MG in Premix Bag 1 BAG IVPB SCH (14:30)
[2020-12-12] MEDS: Dextrose 5% in Water 1,000 ML IV SCH (15:53)
[2020-12-12 15:54] LABS: Carbamazepine-Tegretol 2.3 ug/mL (4.0-12.0)
[2020-12-12] MEDS: Clopidogrel Bisulfate 75 MG TAB PO SCH (16:13)
[2020-12-12] MEDS: Aspirin Chewable 81 MG TAB PO SCH (16:13)
[2020-12-12] MEDS ORDERED: cloNIDine 0.1mg/24 Hour PATCH TD SCH (20:00)
[2020-12-12] MEDS: Atorvastatin Calcium 40 MG TAB PO SCH (20:28)
[2020-12-12] MEDS: Donepezil HCl 5 MG TAB PO SCH (20:29)
[2020-12-12] MEDS: carBAMazepine 200 MG TAB PO SCH (20:29)
[2020-12-12] MEDS: traZODone HCl 50 MG TAB PO SCH (20:29)
[2020-12-12] MEDS: Gabapentin 300 MG CAP PO SCH (20:29)
[2020-12-12] MEDS ORDERED: levETIRAcetam 500 MG TAB PO SCH (21:00)
[2020-12-12] MEDS ORDERED: Labetalol HCl 100 MG/20 ML VIAL SLOW IVP SCH (23:45)
[2020-12-13] MEDS: Dextrose 5% in Water 1,000 ML IV SCH ×3 (05:53→22:10)
[2020-12-13] MEDS: Aspirin Chewable 81 MG TAB PO SCH (16:05)
[2020-12-13] MEDS: Clopidogrel Bisulfate 75 MG TAB PO SCH (16:05)
[2020-12-13 17:36] LABS: Anion Gap 14 mmol/L (10-20); BUN (Urea Nitrogen) 7 mg/dL (9.8-20.1); Calc. Creatinine Clearance 121 mL/min (70-130); Calcium 9.6 mg/dL (7.8-10.44); Carbon Dioxide 27 mmol/L (23-31); Chloride 99 mmol/L (98-107); Glucose 116 mg/dL (80-115); Potassium 3.5 mmol/L (3.5-5.1); Sodium 136 mmol/L (136-145)
[2020-12-13] MEDS: Atorvastatin Calcium 40 MG TAB PO SCH (22:10)
[2020-12-13] MEDS: carBAMazepine 200 MG TAB PO SCH (22:10)
[2020-12-13] MEDS: Gabapentin 300 MG CAP PO SCH (22:11)
[2020-12-13] MEDS: traZODone HCl 50 MG TAB PO SCH (22:11)
[2020-12-13] MEDS: Valproate Sodium 1,000 MG in Sodium Chloride 0.9% 100 ML IVPB SCH (22:11)
[2020-12-13] MEDS: Donepezil HCl 5 MG TAB PO SCH (22:11)
[2020-12-14] MEDS: Aspirin Chewable 81 MG TAB PO SCH (12:34)
[2020-12-14] MEDS: Clopidogrel Bisulfate 75 MG TAB PO SCH (12:35)
[2020-12-14] MEDS: Dextrose 5% in Water 1,000 ML IV SCH (13:10)
[2020-12-14] MEDS: Atorvastatin Calcium 40 MG TAB PO SCH (22:26)
[2020-12-14] MEDS: Gabapentin 300 MG CAP PO SCH (22:26)
[2020-12-14] MEDS: traZODone HCl 50 MG TAB PO SCH (22:27)
[2020-12-14] MEDS: Donepezil HCl 5 MG TAB PO SCH (22:27)
[2020-12-14] MEDS: carBAMazepine 200 MG TAB PO SCH (22:27)
[2020-12-14] MEDS: Valproate Sodium 1,000 MG in Sodium Chloride 0.9% 100 ML IVPB SCH (22:27)
[2020-12-15] MEDS: Aspirin Chewable 81 MG TAB PO SCH (09:52)
[2020-12-15] MEDS: Clopidogrel Bisulfate 75 MG TAB PO SCH (09:52)
[2020-12-15] MEDS: Dextrose 5% in Water 1,000 ML IV SCH (12:45)
[2020-12-15] MEDS ORDERED: Lorazepam 0.5 MG TAB PO PRN (13:44)
[2020-12-15 15:39] LABS: Gabapentin Less than 1.0 ug/mL (4.0-16.0)
[2020-12-15] MEDS ORDERED: Amlodipine 5 MG TAB PO SCH (18:00)
[2020-12-15] MEDS: Divalproex Sodium DR 500 MG TAB PO SCH (22:32)
[2020-12-15] MEDS: carBAMazepine 200 MG TAB PO SCH (22:32)
[2020-12-15] MEDS: traZODone HCl 50 MG TAB PO SCH (22:33)
[2020-12-15] MEDS: Gabapentin 300 MG CAP PO SCH (22:33)
[2020-12-15] MEDS: Donepezil HCl 5 MG TAB PO SCH (22:34)
[2020-12-16] MEDS: Atorvastatin Calcium 40 MG TAB PO SCH ×2 (01:34→20:55)
[2020-12-16] MEDS ORDERED: Amlodipine 5 MG TAB PO SCH (09:00)
[2020-12-16] MEDS: Clopidogrel Bisulfate 75 MG TAB PO SCH (10:17)
[2020-12-16] MEDS: Aspirin Chewable 81 MG TAB PO SCH (10:17)
[2020-12-16] MEDS ORDERED: hydrALAZINE 25 MG TAB PO PRN (18:10)
[2020-12-16] MEDS ORDERED: Propranolol 10 MG TAB PO PRN (18:11)
[2020-12-16] MEDS: Divalproex Sodium DR 500 MG TAB PO SCH (20:55)
[2020-12-16] MEDS: Gabapentin 300 MG CAP PO SCH (20:55)
[2020-12-16] MEDS: Donepezil HCl 5 MG TAB PO SCH (20:55)
[2020-12-16] MEDS: carBAMazepine 200 MG TAB PO SCH (20:55)
[2020-12-16] MEDS: traZODone HCl 50 MG TAB PO SCH (20:55)
[2020-12-17] MEDS: Aspirin Chewable 81 MG TAB PO SCH (10:02)
[2020-12-17] MEDS: Clopidogrel Bisulfate 75 MG TAB PO SCH (10:02)
[2020-12-17 20:18] VITALS: BP 121/88; TEMP 98.4
[2020-12-17] MEDS: traZODone HCl 50 MG TAB PO SCH (20:59)
[2020-12-17] MEDS: Gabapentin 300 MG CAP PO SCH (21:00)
[2020-12-17] MEDS: Atorvastatin Calcium 40 MG TAB PO SCH (21:00)
[2020-12-17] MEDS: Divalproex Sodium DR 500 MG TAB PO SCH (21:01)
[2020-12-17] MEDS: Donepezil HCl 5 MG TAB PO SCH (21:01)
[2020-12-17] MEDS: carBAMazepine 200 MG TAB PO SCH (21:01)
== END 2020-12-17 21:14 | disposition home or self-care (01) | DRG 64 ==
LOC: 3SE 14:42 → OBSVTOIN 15:40
PROVIDERS: ADMIT Internal Medicine; ATTEND Family Medicine
DX: I63.9 Cerebral infarction, unspecified (principal); G93.41 Metabolic encephalopathy; I69.354 Hemiplegia and hemiparesis following cerebral infarction affecting left non-dominant side; Z20.822 Contact with and (suspected) exposure to COVID-19; G50.0 Trigeminal neuralgia; E87.6 Hypokalemia; I16.0 Hypertensive urgency; F32.9 Major depressive disorder, single episode, unspecified; F41.9 Anxiety disorder, unspecified; I10 Essential (primary) hypertension; E78.5 Hyperlipidemia, unspecified; I69.320 Aphasia following cerebral infarction; Z87.891 Personal history of nicotine dependence; Z88.8 Allergy status to other drugs, medicaments and biological substances; Z88.1 Allergy status to other antibiotic agents; Z91.040 Latex allergy status; Z79.01 Long term (current) use of anticoagulants; Z79.82 Long term (current) use of aspirin; Z79.899 Other long term (current) drug therapy
CPT/HCPCS: 36415; 36416; 70450; 70551; 74230; 80048; 80061; 80156; 80164; 80171; 80177; 81001; 82550; 83605; 84132; 84146; 84484; 85025; 85610; 85730; 93306; 95712; 95715; 95819; 95957; J1953; J2060; J3480; J3490; J7050; J7070; U0003; U0005

== ENCOUNTER 2022-03-30 08:29 | Inpatient (IN) | payer BC, SELFPAY ==
[2022-03-30 09:04] LABS: #Eosinphils 0.1 thou/uL (0.0-0.7); #Lymphocytes 2.1 thou/uL (1.20-3.40); #Monocytes 0.4 thou/uL (0.11-0.59); #Neutrophils 2.2 thou/uL (1.40-6.50); %Basophils 0.7 % (0.0-1.0); %Eosinophils 1.3 % (0.0-10.0); %Lymphocytes 43.4 % (21.0-51.0); %Monocytes 8.8 % (0.0-10.0); %Neutrophils 45.9 % (42.0-75.0); Hemoglobin 6.7 g/dL (12.0-16.0); Mean Corpuscular HGB CONC 33.9 g/dL (32.0-36.0); Mean Corpuscular Hemoglobin 35.4 pg (27.0-31.0); Mean Platelet Volume 7.4 fL (7.4-10.4); Platelet Count 305 10x3/uL (130-400); RBC Distribution Width 13.4 % (11.5-14.5); Red Blood Cell (RBC) Count 1.89 mill/uL (4.20-5.40); White Blood Cell (WBC) Count 4.8 10x3/uL (4.8-10.8)
[2022-03-30 09:08] LABS: PTT 28.6 sec (22.9-36.1)
[2022-03-30 09:11] LABS: ALT (SGPT) 17 U/L (8-55); AST (SGOT) 29 U/L (5-34); Albumin 3.5 g/dL (3.4-4.8); Alkaline Phosphatase 63 U/L (40-110); Anion Gap 11 mmol/L (10-20); BUN (Urea Nitrogen) 20 mg/dL (9.8-20.1); Bilirubin, Total 0.3 mg/dL (0.2-1.2); Calc. Creatinine Clearance 0 mL/min (70-130); Calcium 8.8 mg/dL (7.8-10.44); Carbon Dioxide 26 mmol/L (23-31); Chloride 108 mmol/L (98-107); Estimated GFR 93; Globulin 2.3 g/dL (2.4-3.5); Glucose 108 mg/dL (80-115); Potassium 4.1 mmol/L (3.5-5.1); Protein, Total 5.8 g/dL (5.8-8.1); Sodium 141 mmol/L (136-145)
[2022-03-30 09:48] LABS: Bilirubin Negative (Negative); Blood, Urine Negative (Negative); Clarity Clear (Clear); Glucose, Urine (Dipstick) Normal (Negative); Ketone, Urine 10 mg/dL (Negative); Leukocyte Negative Leu/uL (Negative); Nitrite Negative (Negative); Protein, Urine (Dipstick) 10 mg/dL (Neg-Trace); Specific Gravity, Urine 1.026 (1.002-1.036); Urobilinogen 3 mg/dL (Less than 2); pH, Urine 6.5 (5.0-9.0)
[2022-03-30] MEDS ORDERED: Pantoprazole 40 MG VIAL ONE (11:13)
[2022-03-30 12:53] LABS: Reticulocyte Count 11.6 % (0.5-1.5)
[2022-03-30 13:01] LABS: Iron Binding Capacity, Total 319 mcg/dL (265-497)
[2022-03-30 13:02] LABS: Iron 48 ug/dL (50-170)
[2022-03-30] MEDS ORDERED: PROPOFOL 200 MG/20 ML VIAL ONE (16:04)
[2022-03-30] MEDS ORDERED: Lidocaine 1% PF 5 ML VIAL ONE (16:04)
[2022-03-30] MEDS ORDERED: GoLYTELY 4,000 ml Bottle PO SCH (16:25)
[2022-03-30] MEDS ORDERED: Promethazine HCl 25 MG/ML VIAL IVPB PRN (16:26)
[2022-03-30] MEDS ORDERED: Promethazine HCl 25 MG/ML VIAL IM PRN (16:26)
[2022-03-30] MEDS ORDERED: Ondansetron HCl/PF 4 MG/2 ML Vial IVP PRN (16:26)
[2022-03-30 16:50] LABS: SARS-CoV-2 NAA Rapid Test DETECTED (NotDetected)
[2022-03-30] MEDS: Sodium Chloride 0.9% 1,000 ML IV SCH (17:00)
[2022-03-30 17:24] LABS: Hemoglobin 9.7 g/dL (12.0-16.0)
[2022-03-30] MEDS ORDERED: Ondansetron PF 4 MG/2 ML Vial IVP PRN (18:29)
[2022-03-30] MEDS ORDERED: Acetaminophen 325 MG TAB PO PRN (18:29)
[2022-03-30 23:18] VITALS: BMI 24.0
[2022-03-31] MEDS: carBAMazepine 200 MG TAB PO SCH ×2 (00:02→21:50)
[2022-03-31] MEDS: Gabapentin 300 MG CAP PO SCH ×2 (00:02→21:50)
[2022-03-31] MEDS: Atorvastatin Calcium 40 MG TAB PO SCH ×2 (00:02→21:50)
[2022-03-31] MEDS: Donepezil HCl 5 MG TAB PO SCH ×2 (00:03→21:52)
[2022-03-31] MEDS: Sodium Chloride 0.9% 1,000 ML IV SCH ×2 (00:03→17:48)
[2022-03-31 07:22] LABS: #Eosinphils 0.1 thou/uL (0.0-0.7); #Lymphocytes 1.8 thou/uL (1.20-3.40); #Monocytes 0.7 thou/uL (0.11-0.59); #Neutrophils 3.1 thou/uL (1.40-6.50); %Basophils 0.8 % (0.0-1.0); %Eosinophils 1.2 % (0.0-10.0); %Lymphocytes 31.4 % (21.0-51.0); %Monocytes 12.1 % (0.0-10.0); %Neutrophils 54.6 % (42.0-75.0); Hemoglobin 10.3 g/dL (12.0-16.0); Mean Corpuscular HGB CONC 33.6 g/dL (32.0-36.0); Mean Corpuscular Hemoglobin 33.1 pg (27.0-31.0); Mean Corpuscular Volume 98.6 fl (78.0-98.0); Mean Platelet Volume 7.1 fL (7.4-10.4); Platelet Count 212 10x3/uL (130-400); Red Blood Cell (RBC) Count 3.11 mill/uL (4.20-5.40); White Blood Cell (WBC) Count 5.8 10x3/uL (4.8-10.8)
[2022-03-31 07:28] LABS: Anion Gap 11 mmol/L (10-20); BUN (Urea Nitrogen) 5 mg/dL (9.8-20.1); Calc. Creatinine Clearance 112 mL/min (70-130); Calcium 8.4 mg/dL (7.8-10.44); Carbon Dioxide 25 mmol/L (23-31); Chloride 104 mmol/L (98-107); Estimated GFR 103; Glucose 76 mg/dL (80-115); Potassium 3.3 mmol/L (3.5-5.1); Sodium 137 mmol/L (136-145)
[2022-03-31] MEDS: Cyanocobalamin (Vitamin B-12) 1,000 MCG TAB PO SCH (11:14)
[2022-03-31] MEDS: Folic Acid 1 MG TAB PO SCH (11:14)
[2022-03-31] MEDS ORDERED: PROPOFOL 200 MG/20 ML VIAL ONE (12:15)
[2022-03-31] MEDS ORDERED: tiZANidine HCl 4 MG TAB PO PRN (17:35)
[2022-03-31] MEDS ORDERED: Propranolol 10 MG TAB PO PRN (17:35)
[2022-03-31] MEDS: Pantoprazole 80 MG, Admixture Fee 1 EACH in Sodium Chloride 0.9% 100 ML IVPB SCH (19:14)
[2022-04-01] MEDS: Sodium Chloride 0.9% 1,000 ML IV SCH (02:37)
[2022-04-01] MEDS: Pantoprazole 80 MG, Admixture Fee 1 EACH in Sodium Chloride 0.9% 100 ML IVPB SCH (06:03)
[2022-04-01 08:08] VITALS: TEMP 98.2
[2022-04-01 08:27] LABS: #Eosinphils 0.1 thou/uL (0.0-0.7); #Lymphocytes 1.6 thou/uL (1.20-3.40); #Monocytes 0.6 thou/uL (0.11-0.59); #Neutrophils 3.3 thou/uL (1.40-6.50); %Basophils 0.8 % (0.0-1.0); %Eosinophils 2.2 % (0.0-10.0); %Lymphocytes 28.9 % (21.0-51.0); %Neutrophils 58.2 % (42.0-75.0); Hemoglobin 11.2 g/dL (12.0-16.0); Mean Corpuscular Hemoglobin 33.7 pg (27.0-31.0); Mean Corpuscular Volume 99.1 fl (78.0-98.0); Mean Platelet Volume 7.2 fL (7.4-10.4); Platelet Count 216 10x3/uL (130-400); RBC Distribution Width 14.7 % (11.5-14.5); Red Blood Cell (RBC) Count 3.34 mill/uL (4.20-5.40); White Blood Cell (WBC) Count 5.6 10x3/uL (4.8-10.8)
[2022-04-01] MEDS ORDERED: Zinc Sulfate 220 MG CAP PO SCH (09:00)
[2022-04-01] MEDS ORDERED: Ascorbic Acid 500 mg Chewable Tablet PO SCH (09:00)
[2022-04-01] MEDS ORDERED: Potassium Chloride 20 MEQ TAB PO SCH (09:30)
[2022-04-01] MEDS: Folic Acid 1 MG TAB PO SCH (09:57)
[2022-04-01] MEDS: Cyanocobalamin (Vitamin B-12) 1,000 MCG TAB PO SCH (09:57)
== END 2022-04-01 13:13 | disposition home or self-care (01) | DRG 377 ==
LOC: ERS 08:29 → ERHOLD 12:30 → IMCU/EMU 21:57
PROVIDERS: ADMIT Internal Medicine; ATTEND Internal Medicine
PROC: 30233N1 Transfusion of Nonautologous Red Blood Cells into Peripheral Vein, Percutaneous Approach (ICD-10-PCS; principal; 2022-03-30)
PROC: 0DJ08ZZ Inspection of Upper Intestinal Tract, Via Natural or Artificial Opening Endoscopic (ICD-10-PCS; 2022-03-30)
PROC: 0DJD8ZZ Inspection of Lower Intestinal Tract, Via Natural or Artificial Opening Endoscopic (ICD-10-PCS; 2022-03-30)
DX: K92.1 Melena (principal); U07.1 COVID-19; D62 Acute posthemorrhagic anemia; I10 Essential (primary) hypertension; E78.5 Hyperlipidemia, unspecified; K31.9 Disease of stomach and duodenum, unspecified; E87.6 Hypokalemia; K64.8 Other hemorrhoids; K57.30 Diverticulosis of large intestine without perforation or abscess without bleeding; Z96.652 Presence of left artificial knee joint; Z88.1 Allergy status to other antibiotic agents; Z88.8 Allergy status to other drugs, medicaments and biological substances; Z91.040 Latex allergy status; Z79.82 Long term (current) use of aspirin; Z79.899 Other long term (current) drug therapy; I69.920 Aphasia following unspecified cerebrovascular disease; Z90.09 Acquired absence of other part of head and neck; Z87.891 Personal history of nicotine dependence
CPT/HCPCS: 36415; 36430; 51701; 80048; 80053; 81003; 82274; 82728; 83540; 83550; 85025; 85046; 85610; 85730; 86850; 86900; 86901; 93005; 94760; 96374; C9113; J2704; J3490; J7050; P9016; U0002